=== PATIENT | female | born 1975 | race African-American/Black ===

== ENCOUNTER 2022-05-20 14:01 | Emergency (ER) | payer OTHER ==
[~2022-05-20] VITALS: Ht 157.5 cm; Wt 100.0 kg
[2022-05-20 14:24] VITALS: BP 119/79
[2022-05-20] MEDS ORDERED: KETOROLAC TROMETH 60MG/2ML VIAL IM ONE (16:00)
[2022-05-20] MEDS ORDERED: METH750T22 PO (16:17)
[2022-05-20] MEDS ORDERED: ACET-1080 PO (16:17)
== END 2022-05-20 16:24 | disposition home or self-care (01) ==
LOC: ER 14:01 → EDBD 14:01 → ER 16:22
DX: M50.30 Other cervical disc degeneration, unspecified cervical region (principal); M54.12 Radiculopathy, cervical region
CPT/HCPCS: 72040; 96372; 99283; J1885